=== PATIENT | male | born 1945 | race Caucasian/White ===

== ENCOUNTER 2023-11-14 07:32 | Inpatient (IN) | payer MEDICARE ==
[~2023-11-14] VITALS: Ht 188 cm; Wt 88.0 kg
[2023-11-14 08:11] LABS: BASOPHILS # (AUTO) 0.1 X10'3 (0-0.2); BASOPHILS % (AUTO) 1.4 % (0-1); EOSINOPHILS # (AUTO) 0.4 X10'3 (0-0.9); EOSINOPHILS % (AUTO) 3.8 % (0-6); HEMATOCRIT 33.4 % (42.0-52.0); HEMOGLOBIN 11.1 g/dl (14.0-17.9); LYMPHOCYTES # (AUTO) 1.6 X10'3 (1.1-4.8); LYMPHOCYTES % (AUTO) 17.5 % (21-51); MEAN CORPUSCULAR HEMOGLOBIN 30.3 PG (27.0-31.0); MEAN CORPUSCULAR HGB CONC 33.3 g/dL (33.0-36.5); MEAN CORPUSCULAR VOLUME 90.8 FL (78-98); MONOCYTES # (AUTO) 0.6 X10'3 (0-0.9); MONOCYTES % (AUTO) 6.5 % (2-12); NEUTROPHILS # (AUTO) 6.7 X10'3 (1.8-7.7); NEUTROPHILS % (AUTO) 70.8 % (42-75); PLATELET COUNT 308 X10'3 (140-440); RED BLOOD COUNT 3.68 X10'6 (4.70-6.10); RED CELL DISTRIBUTION WIDTH 13.8 % (11.5-14.5); WHITE BLOOD COUNT 9.4 X10'3 (4.5-11.0)
[2023-11-14 08:14] LABS: APTT 30 SECONDS (22-32); PROTHROMBIN TIME 10.9 SECONDS (9.0-12.0)
[2023-11-14] MEDS: normal saline 1000ml 1,000 ML IV ONE (08:16)
[2023-11-14 08:24] LABS: ALBUMIN 2.9 G/DL (3.4-5.0); ANION GAP 8 (8-16); BLOOD UREA NITROGEN 24 MG/DL (7-18); BUN/CREATININE RATIO 16.4 (10.0-20.0); CALCIUM 8.1 MG/DL (8.5-10.1); CHLORIDE 105 MMOL/L (99-107); CREATININE 1.46 MG/DL (0.60-1.10); GLUCOSE 107 MG/DL (70-104); MAGNESIUM 1.5 MG/DL (1.5-2.4); POTASSIUM 3.9 MMOL/L (3.5-5.1); PRO BRAIN NATRIURETIC PEPTIDE 348 PG/ML (0-450); SODIUM 139 MMOL/L (135-145); eCRCL 48 ML/MIN; eGFR 47 ML/MIN
[2023-11-14] MEDS ORDERED: magnesium Cl slow-release 64mg tablet PO PRN (09:55)
[2023-11-14] MEDS ORDERED: potassium Cl 40MEQ/1/2NS 520ml 520 ML IV PRN (09:55)
[2023-11-14] MEDS ORDERED: ondansetron/PF 4mg/2ml inj IV PRN (09:55)
[2023-11-14] MEDS ORDERED: acetaminophen 325mg tablet PO PRN (09:55)
[2023-11-14] MEDS ORDERED: mag hydrox/Alum hydrox/simeth 30ml oral suspension PO PRN (09:55)
[2023-11-14] MEDS ORDERED: magnesium hydroxide 30ml (MOM) UD suspension PO PRN (09:55)
[2023-11-14] MEDS ORDERED: potassium Cl 20 mEq SR tablet PO PRN ×2 (09:55)
[2023-11-14] MEDS ORDERED: magnesium 2GM in 50ml NS 50 ML IV PRN (09:55)
[2023-11-14] MEDS ORDERED: magnesium 4gm in 100ml NS 100 ML IV PRN (09:55)
[2023-11-14] MEDS: normal saline 1000ml 1,000 ML IV SCH (10:29)
[2023-11-14] MEDS ORDERED: ATOR20TA PO (10:46)
[2023-11-14] MEDS ORDERED: AMLO2.5T2 PO (10:46)
[2023-11-14] MEDS ORDERED: DICL50TA8 PO (10:46)
[2023-11-14] MEDS ORDERED: ESCI-8 PO (10:46)
[2023-11-14] MEDS ORDERED: MEMA10TA22 PO (10:46)
[2023-11-14] MEDS ORDERED: METF-900 PO (10:46)
[2023-11-14] MEDS ORDERED: METO-395 PO (10:46)
[2023-11-14] MEDS ORDERED: CEPH500C2 PO (10:46)
[2023-11-14] MEDS ORDERED: CEPH500C81 PO (10:46)
[2023-11-14] MEDS ORDERED: FLO0.4C PO (10:46)
[2023-11-14] MEDS ORDERED: DILT-88 PO (10:46)
[2023-11-14 11:13] LABS: ALANINE AMINOTRANSFERASE 17 U/L (12-78); ALBUMIN 3.1 G/DL (3.4-5.0); ALBUMIN/GLOBULIN RATIO 0.9 (1.1-1.5); ALKALINE PHOSPHATASE 62 IU/L (46-116); ANION GAP 7 (8-16); ASPARTATE AMINO TRANSFERASE 23 U/L (10-37); BILIRUBIN,TOTAL 0.4 MG/DL (0.1-1.0); BLOOD UREA NITROGEN 24 MG/DL (7-18); BUN/CREATININE RATIO 16.6 (10.0-20.0); CALCIUM 8.2 MG/DL (8.5-10.1); CHLORIDE 107 MMOL/L (99-107); CREATININE 1.45 MG/DL (0.60-1.10); GLUCOSE 124 MG/DL (70-104); POTASSIUM 3.9 MMOL/L (3.5-5.1); SODIUM 141 MMOL/L (135-145); TOTAL CARBON DIOXIDE 27.2 MMOL/L (24-32); TOTAL PROTEIN 6.7 G/DL (6.4-8.2); eCRCL 48 ML/MIN; eGFR 47 ML/MIN
[2023-11-14 11:21] LABS: HEMOGLOBIN A1C 5.5 % (4.5-6.2)
[2023-11-14] MEDS ORDERED: dextrose 50%-water 50ml dispensing syringe IV PRN ×2 (11:30)
[2023-11-14] MEDS ORDERED: DEXTROSE 15 GM of carb/4 tabs (each vial/BOTTLE has 4 tablets) PO PRN ×2 (11:30)
[2023-11-14] MEDS ORDERED: glucagon, human recombinant 1mg kit SUBCUT PRN (11:30)
[2023-11-14 11:42] LABS: BILIRUBIN,URINE NEGATIVE (Neg); CLARITY,URINE CLEAR (Clear); COLOR,URINE YELLOW (Yellow); GLUCOSE, URINE NEGATIVE (Neg); KETONES,URINE NEGATIVE (Neg); LEUKOCYTE ESTERASE ,URINE NEGATIVE (Neg); NITRITES, URINE NEGATIVE (Neg); OCCULT BLOOD,URINE SMALL (Neg); PROTEIN,URINE NEGATIVE (Neg); UROBILINOGEN,URINE 0.2 E.U/dL (0.2-1.0)
[2023-11-14 11:52] LABS: UA COLLECTION TYPE CLN CATCH MIDSTREAM
[2023-11-14 11:53] LABS: BACTERIA,URINE NEG /HPF (Neg); RBC,URINE 0-2 /HPF (0-2); WBC,URINE 0-4 /HPF (0-4)
[2023-11-14 11:54] LABS: SQUAMOUS EPITHELIAL CELL,UR NONE SEEN /LPF (FEW)
[2023-11-14] MEDS: INSULIN LISPRO 100 UNIT/ML INSULN.PEN MULTI-DOSE SQ SCH (12:00)
[2023-11-14 14:15] VITALS: RESP 15; O2SAT 95
[2023-11-14 14:18] VITALS: BP 168/85; PULSE 94; RESP 15; TEMP 99.6; O2SAT 95
[2023-11-14 15:30] VITALS: RESP 16; O2SAT 97
[2023-11-14] MEDS: amLODIPine 2.5mg tablet PO SCH (16:42)
[2023-11-14 18:00] VITALS: BP 154/81; PULSE 106; RESP 20; TEMP 99.5; O2SAT 92
[2023-11-14] MEDS: docusate sod 100mg capsule PO SCH (19:51)
[2023-11-14] MEDS: K and/or MAG REPLACEMENT MC SCH (19:52)
[2023-11-14 20:00] VITALS: RESP 20; O2SAT 95
[2023-11-14] MEDS: insulin glargine (Lantus) pen - multi-dose SQ SCH (21:00)
[2023-11-14 22:00] VITALS: BP 139/65; PULSE 92; RESP 18; TEMP 98.5; O2SAT 98
[2023-11-15] MEDS: hydrALAZINE 20mg/ml inj. IV PRN (04:31)
[2023-11-15 06:00] VITALS: BP 152/79; PULSE 97; RESP 18; TEMP 98.4; O2SAT 97
[2023-11-15 07:03] LABS: BASOPHILS # (AUTO) 0.1 X10'3 (0-0.2); BASOPHILS % (AUTO) 0.7 % (0-1); EOSINOPHILS # (AUTO) 0.3 X10'3 (0-0.9); EOSINOPHILS % (AUTO) 2.5 % (0-6); HEMOGLOBIN 11.9 g/dl (14.0-17.9); LYMPHOCYTES # (AUTO) 1.4 X10'3 (1.1-4.8); MEAN CORPUSCULAR HEMOGLOBIN 30.1 PG (27.0-31.0); MEAN CORPUSCULAR HGB CONC 33.9 g/dL (33.0-36.5); MEAN CORPUSCULAR VOLUME 88.7 FL (78-98); MEAN PLATELET VOLUME 8.8 FL (7.4-10.4); MONOCYTES # (AUTO) 0.7 X10'3 (0-0.9); MONOCYTES % (AUTO) 6.3 % (2-12); NEUTROPHILS # (AUTO) 8.5 X10'3 (1.8-7.7); NEUTROPHILS % (AUTO) 77.5 % (42-75); PLATELET COUNT 314 X10'3 (140-440); RED BLOOD COUNT 3.95 X10'6 (4.70-6.10); RED CELL DISTRIBUTION WIDTH 13.8 % (11.5-14.5)
[2023-11-15 07:20] LABS: ALANINE AMINOTRANSFERASE 21 U/L (12-78); ALBUMIN/GLOBULIN RATIO 0.8 (1.1-1.5); ALKALINE PHOSPHATASE 57 IU/L (46-116); ANION GAP 5 (8-16); ASPARTATE AMINO TRANSFERASE 25 U/L (10-37); BILIRUBIN,TOTAL 0.3 MG/DL (0.1-1.0); BLOOD UREA NITROGEN 21 MG/DL (7-18); BUN/CREATININE RATIO 16.7 (10.0-20.0); CALCIUM 8.6 MG/DL (8.5-10.1); CHLORIDE 107 MMOL/L (99-107); CHOL/HDL RATIO 3.8 (0.00-4.99); CHOLESTEROL 123 MG/DL (0-200); CREATININE 1.26 MG/DL (0.60-1.10); GLUCOSE 108 MG/DL (70-104); HDL CHOLESTEROL 32 MG/DL (35-60); LDL CHOLESTEROL 72 MG/DL (50-100); MAGNESIUM 1.5 MG/DL (1.5-2.4); POTASSIUM 3.8 MMOL/L (3.5-5.1); SODIUM 140 MMOL/L (135-145); TOTAL CARBON DIOXIDE 28.2 MMOL/L (24-32); TOTAL PROTEIN 6.6 G/DL (6.4-8.2); TRIGLYCERIDES 127 MG/DL (20-135); eCRCL 57 ML/MIN; eGFR 55 ML/MIN
[2023-11-15 08:00] VITALS: RESP 18; O2SAT 97
[2023-11-15] MEDS: ESCITALOPRAM 10 mg tablet 10 MG TABLET PO SCH (09:12)
[2023-11-15] MEDS: atorvastatin 20mg tablet PO SCH (09:12)
[2023-11-15] MEDS: diltiazem CD 120mg capsule (once-daily) PO ONE (10:49)
[2023-11-15 11:00] VITALS: BP 145/78; PULSE 110; RESP 15; TEMP 97.4; O2SAT 95
[2023-11-15 15:00] VITALS: BP 158/80; PULSE 113; RESP 14; TEMP 98.5; O2SAT 95
[2023-11-15] MEDS ORDERED: memantine 5mg tablet PO SCH (20:00)
[2023-11-16] MEDS ORDERED: tamsulosin 0.4mg capsule PO SCH (08:00)
[2023-11-16] MEDS ORDERED: diltiazem CD 120mg capsule (once-daily) PO SCH (08:00)
[2023-11-17] MEDS ORDERED: CEPH-585 PO (11:23)
[2023-11-17] MEDS ORDERED: SACC250C PO (11:27)
== END 2023-11-15 16:00 | disposition home health service (06) | DRG 310 ==
LOC: ER 07:34 → ED HOLD 10:03 → EDBEDREQ 13:21 → PCU 3S 14:05
PROVIDERS: ADMIT Family Medicine; ATTEND Family Medicine
DX: I44.2 Atrioventricular block, complete (principal); R00.1 Bradycardia, unspecified; N28.9 Disorder of kidney and ureter, unspecified; I10 Essential (primary) hypertension; F41.9 Anxiety disorder, unspecified; F32.A Depression, unspecified; W07.XXXA Fall from chair, initial encounter; E78.00 Pure hypercholesterolemia, unspecified; S09.90XA Unspecified injury of head, initial encounter; E11.9 Type 2 diabetes mellitus without complications; Z79.899 Other long term (current) drug therapy; Y93.89 Activity, other specified; Y92.89 Other specified places as the place of occurrence of the external cause; Y99.8 Other external cause status
CPT/HCPCS: 36415; 70450; 71045; 72125; 80048; 80053; 80061; 81001; 82948; 83036; 83735; 83880; 84484; 85025; 85610; 85730; 87081; 93005; 93306; 96360; 97161; 97530; 97535; 99291; G0378; J0360; J1815; J7030